=== PATIENT | male | born 1965 | race African-American/Black ===

== ENCOUNTER 2017-05-23 18:16 | Inpatient (IN) | payer MEDICAID, OTHER ==
[~2017-05-23] VITALS: Ht 175.3 cm; Wt 72.1 kg
[2017-05-23] MEDS: POTASSIUM CHLORIDE 20 MEQ ER TABLET PO ONE (06:36)
[~2017-05-23 18:16] MED LIST: TRIL2 PO
[2017-05-23] MEDS ORDERED: DiphenhydrAMINE HCL 50 MG/ML VIAL IM ONE (18:45)
[2017-05-23] MEDS ORDERED: HALOPERIDOL LACTATE 5 MG/ML VIAL IM ONE (18:45)
[2017-05-23] MEDS ORDERED: LORazepam 2 MG/ML VIAL IM ONE (18:45)
[2017-05-23 20:21] LABS: BASOPHILS % (AUTO) 0.7 % (0.0-2.0); EOSINOPHILS % (AUTO) 1.4 % (1.0-6.0); HEMATOCRIT 41.2 % (41-53); LYMPHOCYTES # (AUTO) 0.7 K/uL (1.0-4.8); LYMPHOCYTES % (AUTO) 16.3 % (22.0-44.0); MEAN CORPUSCULAR HEMOGLOBIN 29.8 pg (26.0-34.0); MEAN CORPUSCULAR VOLUME 88 fL (80-100); MONOCYTES # (AUTO) 0.4 K/uL (0.1-1.0); MONOCYTES % (AUTO) 9.7 % (2.0-9.0); NEUTROPHILS # (AUTO) 3.2 K/uL (1.8-7.7); NEUTROPHILS % (AUTO) 71.9 % (40.0-70.0); PLATELET COUNT (AUTO) 178 K/uL (150-450); RED BLOOD CELL COUNT(AUTO) 4.71 MIL/uL (4.50-5.90); RED CELL DISTRIBUTION WIDTH 14.1 % (11.5-14.5); WHITE BLOOD COUNT (AUTO) 4.5 K/uL (4.5-11.0)
[2017-05-23 20:42] LABS: ANION GAP 11 mmol/L (8-16); CARBON DIOXIDE 27 mmol/L (22-29); CHLORIDE 106 mmol/L (98-107); CREATININE 1.09 mg/dL (0.60-1.30); GLOMERULAR FILTR. RATE CALC > 60 mL/min (>60); POTASSIUM 3.1 mmol/L (3.5-5.1); SODIUM SERUM 144 mmol/L (136-145); UREA NITROGEN, BLOOD 10 mg/dL (7-18)
[2017-05-23 20:49] LABS: ALANINE AMINOTRANSFERASE 22 U/L (12-78); ALBUMIN 3.8 g/dL (3.4-5.0); ASPARTATE AMINOTRANSFERASE 26 U/L (15-37); BILIRUBIN,TOTAL 0.5 mg/dL (0.1-1.0)
[2017-05-23] MEDS ORDERED: LORazepam 2 MG TABLET PO PRN (23:45)
[2017-05-23] MEDS ORDERED: ZOLPIDEM TARTRATE 10 MG TABLET PO PRN (23:45)
[2017-05-23] MEDS ORDERED: HALOPERIDOL 5 MG TABLET PO PRN (23:45)
[2017-05-24 00:30] LABS: CHOL/HDL RATIO 1.6 (4.2-7.3); THYROID STIMULATING HORMONE 1.14 uIU/mL (0.36-3.74)
[2017-05-24 03:13] VITALS: BP 132/85
[2017-05-24] MEDS ORDERED: INFLUENZA VIRUS VACCINE QVS 2017-18 (3YR+)/PF 60 MCG/0.5 ML SYRINGE IM ONE (03:30)
[2017-05-24 08:20] VITALS: BP 126/75
[2017-05-24 16:10] VITALS: BP 120/76
[2017-05-24] MEDS: POTASSIUM CHLORIDE 20 MEQ ER TABLET PO ONE (18:05)
[2017-05-24] MEDS ORDERED: FluPHENAZine HCL 5 MG TABLET PO PRN (22:15)
[2017-05-25 08:28] VITALS: BP 139/85
[2017-05-25] MEDS: PERPHENAZINE 8 MG TABLET PO SCH ×2 (09:00→16:50)
[2017-05-25 16:00] VITALS: BP 138/88
[2017-05-26 08:07] VITALS: BP 134/82
[2017-05-26] MEDS: PERPHENAZINE 8 MG TABLET PO SCH ×2 (09:00→16:58)
[2017-05-27 01:53] VITALS: BP 124/89
[2017-05-27 08:08] VITALS: BP 140/78
[2017-05-27] MEDS: PERPHENAZINE 8 MG TABLET PO SCH ×2 (09:00→17:00)
[2017-05-27 16:15] VITALS: BP 122/77
[2017-05-28] MEDS: PERPHENAZINE 8 MG TABLET PO SCH ×2 (09:00→17:00)
[2017-05-28 16:00] VITALS: BP 130/89
[2017-05-29] MEDS: PERPHENAZINE 8 MG TABLET PO SCH ×2 (09:00→17:00)
[2017-05-30 08:24] VITALS: BP 138/82
[2017-05-30] MEDS: PERPHENAZINE 8 MG TABLET PO SCH ×2 (09:00→17:00)
[2017-05-30 16:00] VITALS: BP 130/74
[2017-05-31] MEDS: PERPHENAZINE 8 MG TABLET PO SCH ×2 (09:00→17:00)
[2017-06-01] MEDS ORDERED: TRIL8 PO (07:30)
[2017-06-01 08:00] VITALS: BP 129/68
[2017-06-01] MEDS: PERPHENAZINE 8 MG TABLET PO SCH (09:00)
== END 2017-06-01 11:58 | disposition home or self-care (01) | DRG 750 ==
LOC: EMS 18:56 → B3A 05-24 01:00
PROVIDERS: ADMIT Psychiatry & Neurology Psychiatry; ATTEND Psychiatry & Neurology Psychiatry
DX: F20.0 Paranoid schizophrenia (principal); E87.6 Hypokalemia; Z79.899 Other long term (current) drug therapy
CPT/HCPCS: 84443; 90471; 99285; G0480; J1200; J1630; J2060

== ENCOUNTER 2017-09-24 09:43 | Inpatient (IN) | payer MEDICAID, OTHER ==
[~2017-09-24] VITALS: Ht 177.8 cm; Wt 73.0 kg
[~2017-09-24 09:43] MED LIST changes: -TRIL2 PO; +TRIL8 PO
[2017-09-24] MEDS ORDERED: HALOPERIDOL LACTATE 5 MG/ML VIAL IM ONE (10:30)
[2017-09-24 10:31] LABS: BASOPHILS % (AUTO) 0.3 % (0.0-2.0); EOSINOPHILS % (AUTO) 1.4 % (1.0-6.0); HEMOGLOBIN 14.8 g/dL (13.5-17.5); LYMPHOCYTES # (AUTO) 1.7 K/uL (1.0-4.8); LYMPHOCYTES % (AUTO) 39.6 % (22.0-44.0); MEAN CORPUSCULAR HEMOGLOBIN 29.9 pg (26.0-34.0); MEAN CORPUSCULAR HGB CONC 33.7 G/dL (31.0-37.0); MEAN CORPUSCULAR VOLUME 89 fL (80-100); MONOCYTES # (AUTO) 0.5 K/uL (0.1-1.0); NEUTROPHILS % (AUTO) 46.7 % (40.0-70.0); PLATELET COUNT (AUTO) 225 K/uL (150-450); RED BLOOD CELL COUNT(AUTO) 4.96 MIL/uL (4.50-5.90); RED CELL DISTRIBUTION WIDTH 13.8 % (11.5-14.5)
[2017-09-24 10:40] LABS: ANION GAP 6 mmol/L (8-16); CALCIUM, TOTAL 9.2 mg/dL (8.8-10.5); CARBON DIOXIDE 27 mmol/L (22-29); CHLORIDE 108 mmol/L (98-107); CREATININE 1.02 mg/dL (0.60-1.30); GLOMERULAR FILTR. RATE CALC > 60 mL/min (>60); GLUCOSE,RANDOM 91 mg/dL (70-110); POTASSIUM 4.4 mmol/L (3.5-5.1); SODIUM SERUM 141 mmol/L (136-145); UREA NITROGEN, BLOOD 10 mg/dL (7-18)
[2017-09-24 10:45] LABS: ALANINE AMINOTRANSFERASE 20 U/L (12-78); ALBUMIN 3.9 g/dL (3.4-5.0); ALKALINE PHOSPHATASE 86 U/L (46-116); ASPARTATE AMINOTRANSFERASE 18 U/L (15-37); BILIRUBIN,TOTAL 0.4 mg/dL (0.1-1.0); TOTAL PROTEIN, SERUM 7.3 g/dL (6.4-8.2)
[2017-09-24] MEDS ORDERED: ZOLPIDEM TARTRATE 10 MG TABLET PO PRN (11:15)
[2017-09-24 16:17] LABS: AMPHET/METH SCREEN,URINE NEGATIVE (NEGATIVE); BARBITURATE SCREEN, URINE NEGATIVE (NEGATIVE); BENZODIAZEPINES SCREEN,URINE NEGATIVE (NEGATIVE); CANNABINOID SCREEN,URINE POSITIVE (NEGATIVE); COCAINE SCREEN,URINE NEGATIVE (NEGATIVE); METHADONE SCREEN, URINE NEGATIVE (NEGATIVE); OPIATE SCREEN,URINE NEGATIVE (NEGATIVE)
[2017-09-24 16:18] LABS: APPEARANCE,URINE CLEAR (CLEAR); BILIRUBIN,URINE NEGATIVE (NEGATIVE); GLUCOSE, URINE (UA) NEGATIVE (NEGATIVE); KETONES,URINE NEGATIVE (NEGATIVE); LEUKOCYTE ESTERASE ,URINE NEGATIVE (NEGATIVE); NITRATE,URINE NEGATIVE (NEGATIVE); OCCULT BLOOD,URINE NEGATIVE (NEGATIVE); PH,URINE 6.5 (5.0-8.0); PHENCYCLIDINE SCREEN,URINE NEGATIVE (NEGATIVE); PROTEIN,URINE NEGATIVE (NEGATIVE); UROBILINOGEN,URINE 0.2 mg/dL (<=1.0)
[2017-09-24] MEDS ORDERED: ACETAMINOPHEN 325 MG TABLET PO PRN (20:15)
[2017-09-24] MEDS ORDERED: IBUPROFEN 400 MG TABLET PO PRN (20:15)
[2017-09-25] MEDS: PERPHENAZINE 8 MG TABLET PO SCH ×2 (10:30→16:49)
[2017-09-25] MEDS: LORazepam 2 MG TABLET PO PRN (16:49)
[2017-09-25] MEDS: HALOPERIDOL 5 MG TABLET PO PRN (16:49)
[2017-09-25] MEDS ORDERED: ACETAMINOPHEN 325 MG TABLET PO PRN (20:30)
[2017-09-25] MEDS ORDERED: IBUPROFEN 400 MG TABLET PO PRN (20:30)
[2017-09-26 06:49] VITALS: BP 127/91
[2017-09-26 08:06] VITALS: BP 134/78
[2017-09-26] MEDS: LORazepam 2 MG TABLET PO PRN ×2 (08:13→16:47)
[2017-09-26] MEDS: PERPHENAZINE 8 MG TABLET PO SCH ×2 (08:13→16:48)
[2017-09-26] MEDS: HALOPERIDOL 5 MG TABLET PO PRN (16:47)
[2017-09-27 06:46] VITALS: BP 130/72
[2017-09-27 08:17] VITALS: BP 131/73
[2017-09-27] MEDS: PERPHENAZINE 8 MG TABLET PO SCH ×2 (09:04→16:46)
[2017-09-27 16:00] VITALS: BP 119/89
[2017-09-27] MEDS: LORazepam 2 MG TABLET PO PRN (16:46)
[2017-09-28 04:59] VITALS: BP 121/81
[2017-09-28] MEDS: PERPHENAZINE 8 MG TABLET PO SCH ×2 (08:07→16:17)
[2017-09-28 08:08] VITALS: BP 110/72
[2017-09-28] MEDS: LORazepam 2 MG TABLET PO PRN (16:16)
[2017-09-28] MEDS: HALOPERIDOL 5 MG TABLET PO PRN (16:17)
[2017-09-28 16:31] VITALS: BP 123/60
[2017-09-29 01:49] VITALS: BP 121/73
[2017-09-29 08:13] LABS: BASOPHILS % (AUTO) 0.4 % (0.0-2.0); EOSINOPHILS % (AUTO) 1.7 % (1.0-6.0); HEMATOCRIT 46.8 % (41-53); HEMOGLOBIN 16.1 g/dL (13.5-17.5); LYMPHOCYTES # (AUTO) 1.3 K/uL (1.0-4.8); LYMPHOCYTES % (AUTO) 27.1 % (22.0-44.0); MEAN CORPUSCULAR HEMOGLOBIN 30.3 pg (26.0-34.0); MEAN CORPUSCULAR HGB CONC 34.4 G/dL (31.0-37.0); MEAN CORPUSCULAR VOLUME 88 fL (80-100); MONOCYTES # (AUTO) 0.4 K/uL (0.1-1.0); MONOCYTES % (AUTO) 9.4 % (2.0-9.0); NEUTROPHILS # (AUTO) 2.9 K/uL (1.8-7.7); NEUTROPHILS % (AUTO) 61.4 % (40.0-70.0); PLATELET COUNT (AUTO) 251 K/uL (150-450); RED BLOOD CELL COUNT(AUTO) 5.31 MIL/uL (4.50-5.90); RED CELL DISTRIBUTION WIDTH 13.4 % (11.5-14.5)
[2017-09-29 08:27] VITALS: BP 123/86
[2017-09-29] MEDS: PERPHENAZINE 8 MG TABLET PO SCH ×2 (09:17→16:56)
[2017-09-29 16:56] VITALS: BP 105/73
[2017-09-29] MEDS: LORazepam 2 MG TABLET PO PRN (16:56)
[2017-09-30 00:30] VITALS: BP 112/72
[2017-09-30 08:26] VITALS: BP 123/83
[2017-09-30] MEDS: PERPHENAZINE 8 MG TABLET PO SCH ×2 (08:40→17:00)
[2017-09-30 16:26] VITALS: BP 138/89
[2017-10-01 08:10] VITALS: BP 114/68
[2017-10-01] MEDS: PERPHENAZINE 8 MG TABLET PO SCH (08:43)
== END 2017-10-01 10:51 | disposition home or self-care (01) | DRG 750 ==
LOC: EEVIPCON 09:44 → EMS 09:44 → B3A 15:34
PROVIDERS: ADMIT Psychiatry & Neurology Child & Adolescent Psychiatry; ATTEND Psychiatry & Neurology Child & Adolescent Psychiatry
DX: F20.0 Paranoid schizophrenia (principal); Z78.1 Physical restraint status; D72.819 Decreased white blood cell count, unspecified; F41.9 Anxiety disorder, unspecified; F19.10 Other psychoactive substance abuse, uncomplicated; Z71.51 Drug abuse counseling and surveillance of drug abuser; Z79.899 Other long term (current) drug therapy
CPT/HCPCS: 96372; 99291; G0480; J1630

== ENCOUNTER 2021-03-09 07:47 | Inpatient (IN) | payer MEDICAID, OTHER ==
[~2021-03-09] VITALS: Ht 175.3 cm; Wt 80.5 kg
[2021-03-09] MEDS ORDERED: HALOPERIDOL LACTATE 5 MG/ML VIAL IM ONE (08:45)
[2021-03-09] MEDS ORDERED: LORazepam 2 MG/ML VIAL IM ONE (08:45)
[2021-03-09] MEDS ORDERED: DiphenhydrAMINE HCL 50 MG/ML VIAL IM ONE (08:45)
[2021-03-09 10:08] LABS: COVID AG,FIA SOURCE NASOPHARYNGEAL
[2021-03-09] MEDS ORDERED: LORazepam 2 MG TABLET PO PRN (13:45)
[2021-03-09] MEDS ORDERED: ZOLPIDEM TARTRATE 10 MG TABLET PO PRN (13:45)
[2021-03-09] MEDS: HALOPERIDOL 5 MG TABLET PO PRN (20:10)
[2021-03-09 20:13] VITALS: BP 147/87
[2021-03-09] MEDS: DIVALPROEX SODIUM 500 MG DR TABLET PO SCH (21:27)
[2021-03-09] MEDS: RisperiDONE 3 MG TABLET PO SCH (21:31)
[2021-03-10 05:32] VITALS: BP 138/82
[2021-03-10] MEDS: RisperiDONE 3 MG TABLET PO SCH ×2 (08:54→16:37)
[2021-03-10] MEDS: DIVALPROEX SODIUM 500 MG DR TABLET PO SCH ×2 (08:54→16:36)
[2021-03-10] MEDS: HALOPERIDOL 5 MG TABLET PO PRN ×2 (13:06→17:32)
[2021-03-10 16:20] VITALS: BP 110/74
[2021-03-10] MEDS ORDERED: DOCUSATE SODIUM 100 MG CAPSULE PO PRN (17:15)
[2021-03-10] MEDS ORDERED: CloNIDine HCL 0.1 MG TABLET PO PRN (17:15)
[2021-03-10] MEDS ORDERED: PETROLATUM,WHITE 28 GM JELLY TP PRN (17:15)
[2021-03-10] MEDS ORDERED: BACITRACIN 28 GM OINTMENT TP PRN (17:15)
[2021-03-10] MEDS ORDERED: OMEPRAZOLE 20 MG CAPSULE PO PRN (17:15)
[2021-03-10] MEDS ORDERED: BENZOCAINE/MENTHOL LOZENGE PO PRN (17:15)
[2021-03-10] MEDS ORDERED: ACETAMINOPHEN 325 MG TABLET PO PRN (17:15)
[2021-03-10] MEDS ORDERED: MAGNESIUM HYDROXIDE SUSPENSION 30 ML UDCUP PO PRN (17:15)
[2021-03-10] MEDS ORDERED: ONDANSETRON HCL 4 MG TABLET PO PRN (17:15)
[2021-03-10] MEDS ORDERED: LOPERAMIDE HCL 2 MG CAPSULE PO PRN (17:15)
[2021-03-10] MEDS ORDERED: ALBUTEROL SULFATE HFA 90 MCG/PUFF 8 GM INHALER IH PRN (17:15)
[2021-03-10] MEDS ORDERED: MAG HYDROX/AL HYDROX/SIMETH ES 30 ML SUSPENSION UDCUP PO PRN (17:15)
[2021-03-10] MEDS ORDERED: IBUPROFEN 600 MG TABLET PO PRN (17:15)
[2021-03-11 01:43] VITALS: BP 122/72
[2021-03-11] MEDS: RisperiDONE 3 MG TABLET PO SCH ×2 (08:51→16:33)
[2021-03-11] MEDS: DIVALPROEX SODIUM 500 MG DR TABLET PO SCH ×2 (08:51→16:33)
[2021-03-11 16:19] VITALS: BP 106/66
[2021-03-12 01:02] VITALS: BP 122/81
[2021-03-12 08:00] VITALS: BP 118/80
[2021-03-12] MEDS: DIVALPROEX SODIUM 500 MG DR TABLET PO SCH ×2 (09:00→16:38)
[2021-03-12] MEDS: RisperiDONE 3 MG TABLET PO SCH ×2 (09:00→16:38)
[2021-03-12 17:07] VITALS: BP 151/95
[2021-03-13 00:56] VITALS: BP 133/87
[2021-03-13 08:35] VITALS: BP 110/72
[2021-03-13] MEDS: DIVALPROEX SODIUM 500 MG DR TABLET PO SCH ×2 (10:01→16:44)
[2021-03-13] MEDS: RisperiDONE 3 MG TABLET PO SCH ×2 (10:02→16:44)
[2021-03-13 16:28] VITALS: BP 122/74
[2021-03-14 01:24] VITALS: BP 97/64
[2021-03-14 08:17] VITALS: BP 101/66
[2021-03-14] MEDS: DIVALPROEX SODIUM 500 MG DR TABLET PO SCH ×2 (08:41→16:13)
[2021-03-14] MEDS: RisperiDONE 3 MG TABLET PO SCH ×2 (08:41→16:13)
[2021-03-14 16:23] VITALS: BP 125/67
[2021-03-15 00:30] VITALS: BP 94/65
[2021-03-15] MEDS: DIVALPROEX SODIUM 500 MG DR TABLET PO SCH (08:21)
[2021-03-15] MEDS: RisperiDONE 3 MG TABLET PO SCH (08:21)
[2021-03-15 09:08] VITALS: BP 106/65
[2021-03-15] MEDS ORDERED: RISP3TAB35 PO (12:33)
[2021-03-15] MEDS ORDERED: DIVA-112 PO (12:33)
== END 2021-03-15 13:45 | disposition home or self-care (01) | DRG 750 ==
LOC: EMS 07:54 → B3A 16:48
PROVIDERS: ADMIT Psychiatry & Neurology Psychiatry; ATTEND Psychiatry & Neurology Psychiatry
DX: F20.9 Schizophrenia, unspecified (principal); Z59.0 Homelessness; F17.200 Nicotine dependence, unspecified, uncomplicated; F32.9 Major depressive disorder, single episode, unspecified; F41.9 Anxiety disorder, unspecified; F19.10 Other psychoactive substance abuse, uncomplicated; G47.00 Insomnia, unspecified; J44.9 Chronic obstructive pulmonary disease, unspecified; Z20.822 Contact with and (suspected) exposure to COVID-19; K59.00 Constipation, unspecified; Z79.899 Other long term (current) drug therapy
CPT/HCPCS: 99285; J1200; J1630; J2060